=== PATIENT | female | born 1990 | race Caucasian/White ===

== ENCOUNTER 2018-12-04 17:33 | Inpatient (IN) | payer OTHER ==
[~2018-12-04] VITALS: Ht 165.1 cm; Wt 90.0 kg
[~2018-12-04 17:33] MED LIST: NORG1TAB6 PO
[2018-12-15] MEDS ORDERED: METHYLERGONOVINE 0.2 MG/ML IM ONE (08:00)
[2018-12-15] MEDS ORDERED: CARBOPROST TROMETHAMINE 250 MCG/ML, 1ML IM ONE (08:00)
[2018-12-15] MEDS: D5%-LACTATED RINGERS 1,000 ML IV SCH ×2 (09:36→17:36)
[2018-12-15] MEDS ORDERED: OXYTOCIN 30U/ 0.9% NaCL 500ML 500 ML IV ONE (09:36)
[2018-12-15] MEDS: LACTATED RINGERS 1,000 ML IV SCH ×3 (09:36→17:57)
[2018-12-15] MEDS ORDERED: OXYTOCIN 30U/ 0.9% NaCL 500ML 500 ML IV PRN (09:36)
[2018-12-15 10:00] LABS: BASOPHILS # (AUTO) 0.05 x10^3/uL (0-0.1); BASOPHILS % (AUTO) 1 % (0-1); EOSINOPHILS # (AUTO) 0.04 x10^3/uL (0-0.4); EOSINOPHILS % (AUTO) 1 % (1-7); LYMPHOCYTES # (AUTO) 1.76 x10^3/uL (1-3.4); LYMPHOCYTES % (AUTO) 23 % (22-44); MD NO; MEAN CORPUSCULAR HEMOGLOBIN 29.1 pg (27.0-34.8); MEAN CORPUSCULAR HGB CONC 32.8 g/dL (32.4-35.8); MEAN CORPUSCULAR VOLUME 88.6 fL (80-100); MONOCYTES # (AUTO) 0.46 x10^3/uL (0.2-0.8); MONOCYTES % (AUTO) 6 % (2-9); NEUTROPHILS # (AUTO) 5.45 x10^3/uL (1.8-6.8); NEUTROPHILS % (AUTO) 70 % (42-75); PLATELET COUNT 199 x10^3/uL (130-400); RED BLOOD COUNT 4.34 x10^6/uL (3.82-5.3); RED CELL DISTRIBUTION WIDTH 14.4 % (9.6-15.2)
[2018-12-15] MEDS ORDERED: ONDANSETRON 2MG/ML, 2ML IVPush PRN (10:00)
[2018-12-15] MEDS ORDERED: CALCIUM CARBONATE 500 MG TAB.CHEW PO PRN (10:00)
[2018-12-15] MEDS ORDERED: FENTANYL PF 100 MCG/2ML IV PRN (10:00)
[2018-12-15] MEDS ORDERED: TERBUTALINE 1 MG/ML, 1ML IVPush PRN (10:00)
[2018-12-15] MEDS ORDERED: FENTANYL PF 100 MCG/2ML IVPush PRN (10:00)
[2018-12-15] MEDS ORDERED: NEWBORN KIT ONE (10:07)
[2018-12-15] MEDS ORDERED: MISOPROSTOL 200 MCG TABLET ONE (10:08)
[2018-12-15] MEDS ORDERED: LIDOCAINE 1%, 20ML ONE (10:08)
[2018-12-15] MEDS ORDERED: OXYTOCIN 30U/ 0.9% NaCL 500ML 500 ML ONE (10:08)
[2018-12-15] MEDS ORDERED: MISOPROSTOL 25 MCG TABLET ONE ×2 (10:08→14:08)
[2018-12-15] MEDS: MISOPROSTOL 25 MCG TABLET VG PRN ×2 (10:13→14:26)
[2018-12-15] MEDS ORDERED: FENTANYL/BUPIV./NS/PF 250 ML EPIDCONT SCH (17:57)
[2018-12-15] MEDS ORDERED: EPHEDRINE 50 MG/ML, 1ML IVPush PRN (18:00)
[2018-12-15] MEDS ORDERED: FENTANYL PF 500 MCG, BUPIVACAINE/PF 0.5%, 30ML 62.5 ML in SODIUM CHLORIDE 0.9% 177.5 ML EPIDCONT SCH (18:30)
[2018-12-15] MEDS ORDERED: LACTATED RINGERS 1,000 ML IVBOLUS PRN (19:00)
[2018-12-15 19:19] VITALS: BP 133/83
[2018-12-16] MEDS: LACTATED RINGERS 1,000 ML IV SCH ×7 (00:07→23:57)
[2018-12-16] MEDS: D5%-LACTATED RINGERS 1,000 ML IV SCH ×2 (01:36→09:36)
[2018-12-16] MEDS ORDERED: FENTANYL PF 100 MCG/2ML ONE ×3 (06:06→12:36)
[2018-12-16] MEDS ORDERED: BUPIVACAINE 0.25% ONE (07:19)
[2018-12-16] MEDS ORDERED: LIDOCAINE/PF 1.5% EPI 1:200K, 10 ML ONE (07:20)
[2018-12-16] MEDS ORDERED: LIDOCAINE/PF 1.5%-EPI 1:200K, 30ML ONE (07:22)
[2018-12-16] MEDS ORDERED: FENTANYL/BUPIV./NS/PF 250 ML EPIDCONT SCH (07:58)
[2018-12-16] MEDS ORDERED: ONDANSETRON 2MG/ML, 2ML IVPush PRN (08:00)
[2018-12-16] MEDS ORDERED: EPHEDRINE 50 MG/ML, 1ML IVPush PRN (08:00)
[2018-12-16] MEDS ORDERED: METOCLOPRAMIDE 5 MG/ML, 2ML ONE (12:26)
[2018-12-16] MEDS ORDERED: SODIUM CITRATE/CITRIC ACID 15 ML UDC ONE (12:26)
[2018-12-16] MEDS ORDERED: METOCLOPRAMIDE 5 MG/ML, 2ML IV ONE (12:30)
[2018-12-16] MEDS ORDERED: SODIUM CITRATE/CITRIC ACID 15 ML UDC PO ONE (12:30)
[2018-12-16] MEDS ORDERED: morphine SULFATE/PF 0.5 MG/ML, 10ML ONE (12:45)
[2018-12-16] MEDS ORDERED: BUPIVACAINE/PF 0.25% ONE (13:33)
[2018-12-16] MEDS ORDERED: WATER-INJECTION,STERILE 10 ML IV ONE (13:33)
[2018-12-16] MEDS ORDERED: PHENYLEPHRINE 10 MG/ML ONE (13:33)
[2018-12-16] MEDS ORDERED: OXYTOCIN 10 UNITS/ML, 1ML ONE (13:33)
[2018-12-16] MEDS ORDERED: EPHEDRINE 50 MG/ML, 1ML ONE (13:33)
[2018-12-16] MEDS ORDERED: CEFAZOLIN 1,000 MG ONE (13:33)
[2018-12-16] MEDS ORDERED: LIDOCAINE-MPF 2% ,5ML ONE (13:33)
[2018-12-16] MEDS ORDERED: LACTATED RINGERS 1,000 ML IV SCH (13:57)
[2018-12-16] MEDS: OXYTOCIN 30U/ 0.9% NaCL 500ML 500 ML IV SCH ×2 (13:57→23:57)
[2018-12-16] MEDS ORDERED: BISACODYL 10 MG SUPP PR PRN (14:00)
[2018-12-16] MEDS ORDERED: ACETAMINOPHEN 325 MG TABLET PO PRN (14:00)
[2018-12-16] MEDS ORDERED: METOCLOPRAMIDE 5 MG/ML, 2ML IV PRN (14:00)
[2018-12-16] MEDS ORDERED: METHYLERGONOVINE 0.2 MG/ML IM PRN (14:00)
[2018-12-16] MEDS ORDERED: ONDANSETRON 2MG/ML, 2ML IV PRN (14:00)
[2018-12-16] MEDS ORDERED: CARBOPROST TROMETHAMINE 250 MCG/ML, 1ML IM PRN (14:00)
[2018-12-16] MEDS ORDERED: GLYCERIN ADULT SUPP PR PRN (14:00)
[2018-12-16] MEDS ORDERED: HYDROmorphone 2 MG/ML, 1ML ONE (14:16)
[2018-12-16] MEDS ORDERED: MISOPROSTOL 200 MCG TABLET PR ONE (14:30)
[2018-12-16] MEDS ORDERED: HYDROmorphone/PF 10 MG/ML, 1ML IVPush PRN (14:30)
[2018-12-16] MEDS ORDERED: DIPHENHYDRAMINE 50 MG/ML, 1ML IVPush PRN (14:30)
[2018-12-16] MEDS ORDERED: KETOROLAC 30 MG/1 ML IV SCH (14:30)
[2018-12-16] MEDS ORDERED: NALOXONE 0.4 MG/ML, 1ML IVPush PRN (14:30)
[2018-12-16] MEDS ORDERED: HYDROmorphone 2 MG/ML, 1ML IVPush PRN (14:35)
[2018-12-16] MEDS ORDERED: OXYcodone/APAP 5/325MG TABLET ONE (14:44)
[2018-12-16] MEDS: OXYcodone/APAP 5/325MG TABLET PO PRN ×2 (14:48→19:43)
[2018-12-16 16:07] VITALS: BP 114/74
[2018-12-16] MEDS: DOCUSATE 100 MG CAPSULE PO PRN (19:43)
[2018-12-16 20:00] VITALS: BP 122/83
[2018-12-16] MEDS: KETOROLAC 30 MG/1 ML IV SCH (20:57)
[2018-12-16 21:35] LABS: MEAN CORPUSCULAR HEMOGLOBIN 28.8 pg (27.0-34.8); MEAN CORPUSCULAR HGB CONC 32.4 g/dL (32.4-35.8); MEAN CORPUSCULAR VOLUME 88.7 fL (80-100); MEAN PLATELET VOLUME 8.6 fL (7.4-10.4); PLATELET COUNT 181 x10^3/uL (130-400); RED BLOOD COUNT 3.19 x10^6/uL (3.82-5.3); RED CELL DISTRIBUTION WIDTH 14.4 % (9.6-15.2)
[2018-12-16 21:52] LABS: BASOPHILS # (AUTO) 0.02 x10^3/uL (0-0.1); BASOPHILS % (AUTO) 0 % (0-1); EOSINOPHILS # (AUTO) 0.01 x10^3/uL (0-0.4); EOSINOPHILS % (AUTO) 0 % (1-7); LYMPHOCYTES # (AUTO) 1.68 x10^3/uL (1-3.4); LYMPHOCYTES % (AUTO) 13 % (22-44); MD SCAN; MONOCYTES # (AUTO) 0.59 x10^3/uL (0.2-0.8); MONOCYTES % (AUTO) 4 % (2-9); NEUTROPHILS % (AUTO) 83 % (42-75)
[2018-12-17 00:30] VITALS: BP 103/65
[2018-12-17] MEDS: OXYcodone/APAP 5/325MG TABLET PO PRN ×4 (00:40→15:41)
[2018-12-17] MEDS: KETOROLAC 30 MG/1 ML IV SCH ×2 (02:41→09:03)
[2018-12-17 05:30] VITALS: BP 90/58
[2018-12-17 08:10] VITALS: BP 91/60
[2018-12-17] MEDS ORDERED: MEASLES,MUMPS&RUBELLA VACC/PF 0.5 ML SQ-VACC ONE ×2 (08:52→09:00)
[2018-12-17] MEDS: DOCUSATE 100 MG CAPSULE PO PRN ×2 (09:03→21:14)
[2018-12-17] MEDS: PRENATAL VIT/IRON/FA 1 EACH TABLET PO SCH (09:03)
[2018-12-17] MEDS: FERROUS SULFATE 325 MG TABLET PO SCH ×2 (09:03→21:15)
[2018-12-17] MEDS: OXYTOCIN 30U/ 0.9% NaCL 500ML 500 ML IV SCH ×2 (09:57→19:57)
[2018-12-17] MEDS: LACTATED RINGERS 1,000 ML IV SCH ×2 (09:57→19:57)
[2018-12-17 12:10] VITALS: BP 107/68
[2018-12-17 15:05] VITALS: BP 105/70
[2018-12-17] MEDS ORDERED: IBUPROFEN 800 MG TABLET ONE (17:07)
[2018-12-17] MEDS: IBUPROFEN 800 MG TABLET PO PRN (18:00)
[2018-12-17 19:30] VITALS: BP 114/69
[2018-12-18] MEDS: OXYcodone/APAP 5/325MG TABLET PO PRN ×2 (01:00→08:15)
[2018-12-18] MEDS: IBUPROFEN 800 MG TABLET PO PRN ×3 (05:59→22:49)
[2018-12-18 07:25] VITALS: BP 106/68
[2018-12-18] MEDS: FERROUS SULFATE 325 MG TABLET PO SCH ×2 (08:15→22:49)
[2018-12-18] MEDS: PRENATAL VIT/IRON/FA 1 EACH TABLET PO SCH (08:15)
[2018-12-18] MEDS: DOCUSATE 100 MG CAPSULE PO PRN ×2 (08:15→22:49)
[2018-12-18] MEDS ORDERED: IBUPROFEN 800 MG TABLET PO PRN (14:00)
[2018-12-18 20:00] VITALS: BP 113/74
[2018-12-19] MEDS: OXYcodone/APAP 5/325MG TABLET PO PRN (01:58)
[2018-12-19] MEDS: IBUPROFEN 800 MG TABLET PO PRN (06:50)
[2018-12-19 07:05] VITALS: BP 96/62
[2018-12-19] MEDS: DOCUSATE 100 MG CAPSULE PO PRN (08:01)
[2018-12-19] MEDS: FERROUS SULFATE 325 MG TABLET PO SCH (08:01)
[2018-12-19] MEDS: PRENATAL VIT/IRON/FA 1 EACH TABLET PO SCH (08:01)
[2018-12-19] MEDS ORDERED: OXYC-302 PO (12:47)
[2018-12-19] MEDS ORDERED: FERR-4 PO (12:47)
[2018-12-19] MEDS ORDERED: IBUP-1222 PO (12:47)
[2019-01-17] MEDS ORDERED: IBUPROFEN 800 MG TABLET PO PRN (17:00)
== END 2018-12-19 14:06 | disposition home or self-care (01) | DRG 787 ==
LOC: EDIP 12-15 09:19 → LDIP 12-15 09:27 → 2NW 12-16 15:52
PROVIDERS: ADMIT Student in an Organized Health Care Education/Training Program; ATTEND Student in an Organized Health Care Education/Training Program
PROC: 10D00Z1 Extraction of Products of Conception, Low, Open Approach (ICD-10-PCS; principal; 2018-12-16)
DX: O48.0 Post-term pregnancy (principal); D62 Acute posthemorrhagic anemia; O72.1 Other immediate postpartum hemorrhage; O99.03 Anemia complicating the puerperium; O32.8XX0 Maternal care for other malpresentation of fetus, not applicable or unspecified; G89.18 Other acute postprocedural pain; Z37.0 Single live birth; Z3A.41 41 weeks gestation of pregnancy; Z80.41 Family history of malignant neoplasm of ovary; Z82.3 Family history of stroke; Z82.49 Family history of ischemic heart disease and other diseases of the circulatory system; Z83.3 Family history of diabetes mellitus
CPT/HCPCS: 36415; J3490; S0020; 85025; 86850; 86900; G0378; J0690; J1170; J1885; J2274; J3010; J2210; J2370; J2590; J2765; J7050; J7120

== ENCOUNTER → 2020-11-04 | Outpatient (CLI) | payer OTHER ==
[~2020-11-04] MED LIST changes: +FERR-4 PO; +IBUP-1222 PO; +OXYC1TAB14 PO
== END | disposition home or self-care (01) ==
LOC: STAR 15:30
PROVIDERS: ATTEND Student in an Organized Health Care Education/Training Program
DX: Z20.822 Contact with and (suspected) exposure to COVID-19 (principal)
CPT/HCPCS: U0003; U0005

== ENCOUNTER 2020-11-07 07:16 | Inpatient (IN) | payer OTHER ==
[~2020-11-07] VITALS: Ht 167.6 cm; Wt 97.0 kg
[~2020-11-07 07:16] MED LIST changes: +OXYC1TAB12 PO; -OXYC1TAB14 PO
[2020-11-09] MEDS ORDERED: ONDANSETRON 2MG/ML, 2ML IVPush PRN (07:30)
[2020-11-09] MEDS ORDERED: FENTANYL PF 100 MCG/2ML IVPush PRN (07:30)
[2020-11-09] MEDS ORDERED: OXYTOCIN 30U/ 0.9% NaCL 500ML 500 ML IV PRN (07:30)
[2020-11-09] MEDS ORDERED: TERBUTALINE 1 MG/ML, 1ML SQ PRN (07:30)
[2020-11-09] MEDS ORDERED: TERBUTALINE 1 MG/ML, 1ML IVPush PRN (07:30)
[2020-11-09] MEDS ORDERED: OXYTOCIN 30U/ 0.9% NaCL 500ML 500 ML ONE (07:35)
[2020-11-09] MEDS: LACTATED RINGERS 1,000 ML IV SCH ×2 (07:38→15:30)
[2020-11-09 08:07] LABS: BASOPHILS % (AUTO) 1 % (0-1); EOSINOPHILS % (AUTO) 0 % (1-7); LYMPHOCYTES % (AUTO) 24 % (22-44); MEAN CORPUSCULAR HGB CONC 34.4 g/dL (32.4-35.8); MONOCYTES % (AUTO) 6 % (2-9); NEUTROPHILS % (AUTO) 69 % (42-75); PLATELET COUNT 222 x10^3/uL (130-400); RED BLOOD COUNT 4.41 x10^6/uL (3.82-5.3); RED CELL DISTRIBUTION WIDTH 14.6 % (9.6-15.2)
[2020-11-09 08:14] LABS: ALBUMIN 2.6 g/dL (3.4-5.0); ANION GAP 9 mmol/L (5-15); CALCIUM 8.8 mg/dL (8.5-10.1); CHLORIDE 109 mmol/L (98-107)
[2020-11-09 08:18] VITALS: BP 113/68
[2020-11-09 08:18] LABS: ALANINE AMINOTRANSFERASE 14 U/L (12-78); ALKALINE PHOSPHATASE 134 U/L (45-117); BILIRUBIN,TOTAL 0.4 mg/dL (0.2-1.0); TOTAL PROTEIN 6.9 g/dL (6.4-8.2)
[2020-11-09] MEDS ORDERED: OXYTOCIN 30U/ 0.9% NaCL 500ML 500 ML IV ONE (08:30)
[2020-11-09] MEDS ORDERED: D5%-LACTATED RINGERS 1,000 ML IV SCH (08:30)
[2020-11-09 08:38] LABS: MICROSCOPIC INDICATED
[2020-11-09] MEDS ORDERED: NEWBORN KIT ONE (09:50)
[2020-11-09] MEDS ORDERED: PREN1TAB60 PO (10:27)
[2020-11-09] MEDS ORDERED: LACTATED RINGERS 1,000 ML IVBOLUS PRN (12:00)
[2020-11-09] MEDS ORDERED: LACTATED RINGERS 1,000 ML IV SCH (12:00)
[2020-11-09] MEDS ORDERED: NALOXONE 0.4 MG/ML, 1ML IVPush PRN (12:00)
[2020-11-09] MEDS ORDERED: FENTANYL/BUPIV./NS/PF 250 ML EPIDCONT SCH (12:00)
[2020-11-09] MEDS ORDERED: EPHEDRINE 50 MG/ML, 1ML IVPush PRN (12:00)
[2020-11-09] MEDS ORDERED: BUPIVACAINE 0.25% ONE (17:05)
[2020-11-10] MEDS ORDERED: METOCLOPRAMIDE 5 MG/ML, 2ML ONE (07:36)
[2020-11-10] MEDS ORDERED: SODIUM CITRATE/CITRIC ACID 15 ML UDC ONE (07:36)
[2020-11-10] MEDS ORDERED: METOCLOPRAMIDE 5 MG/ML, 2ML IV ONE (08:30)
[2020-11-10] MEDS ORDERED: SODIUM CITRATE/CITRIC ACID 30 ML UDC PO ONE (08:30)
[2020-11-10] MEDS ORDERED: AZITHROMYCIN 500 MG in SODIUM CHLORIDE 0.9% 250 ML IV ONE (08:30)
[2020-11-10] MEDS ORDERED: LACTATED RINGERS 1,000 ML IVBOLUS ONE (08:30)
[2020-11-10] MEDS ORDERED: FENTANYL PF 100 MCG/2ML ONE (09:36)
[2020-11-10] MEDS ORDERED: CEFAZOLIN 1,000 MG ONE (09:36)
[2020-11-10] MEDS ORDERED: ONDANSETRON 2MG/ML, 2ML ONE (09:36)
[2020-11-10] MEDS ORDERED: HYDROmorphone 2 MG/ML, 1ML ONE (09:36)
[2020-11-10] MEDS ORDERED: OXYTOCIN 10 UNITS/ML, 1ML ONE (09:36)
[2020-11-10] MEDS ORDERED: LIDOCAINE/MPF 2%-EPI 1:200K, 20 ML ONE (09:37)
[2020-11-10] MEDS ORDERED: EPHEDRINE 50 MG/ML, 1ML ONE (10:10)
[2020-11-10] MEDS ORDERED: KETOROLAC 30 MG/1 ML ONE (10:25)
[2020-11-10] MEDS ORDERED: OXYTOCIN 30U/ 0.9% NaCL 500ML 500 ML ONE (10:47)
[2020-11-10] MEDS ORDERED: ACETAMINOPHEN 325 MG TABLET PO PRN (11:00)
[2020-11-10] MEDS: LACTATED RINGERS 1,000 ML IV SCH ×4 (11:00→21:00)
[2020-11-10] MEDS ORDERED: MISOPROSTOL 200 MCG TABLET ONE (11:00)
[2020-11-10] MEDS ORDERED: BISACODYL 10 MG SUPP PR PRN (11:00)
[2020-11-10] MEDS ORDERED: IBUPROFEN 800 MG TABLET PO PRN (11:00)
[2020-11-10] MEDS: OXYTOCIN 30U/ 0.9% NaCL 500ML 500 ML IV SCH ×2 (11:00→21:00)
[2020-11-10] MEDS ORDERED: MISOPROSTOL 200 MCG TABLET PO PRN (11:00)
[2020-11-10] MEDS ORDERED: GLYCERIN ADULT SUPP PR PRN (11:00)
[2020-11-10] MEDS ORDERED: METHYLERGONOVINE 0.2 MG/ML IM PRN (11:00)
[2020-11-10] MEDS ORDERED: OXYcodone/APAP 5/325MG TABLET PO PRN (11:00)
[2020-11-10] MEDS ORDERED: CARBOPROST TROMETHAMINE 250 MCG/ML, 1ML IM PRN (11:00)
[2020-11-10] MEDS ORDERED: ONDANSETRON 2MG/ML, 2ML IV PRN (11:00)
[2020-11-10] MEDS: KETOROLAC 30 MG/1 ML IV SCH ×3 (11:00→22:14)
[2020-11-10] MEDS ORDERED: METOCLOPRAMIDE 5 MG/ML, 2ML IV PRN (11:00)
[2020-11-10] MEDS ORDERED: NEWBORN KIT ONE (11:01)
[2020-11-10] MEDS ORDERED: DIPHENOXYLATE/ATROPINE TABLET PO PRN (12:00)
[2020-11-10 12:50] LABS: MEAN CORPUSCULAR HEMOGLOBIN 29.9 pg (27.0-34.8); MEAN CORPUSCULAR HGB CONC 33.8 g/dL (32.4-35.8); MEAN PLATELET VOLUME 9.3 fL (7.4-10.4); PLATELET COUNT 171 x10^3/uL (130-400); RED BLOOD COUNT 3.52 x10^6/uL (3.82-5.3); RED CELL DISTRIBUTION WIDTH 14.9 % (9.6-15.2)
[2020-11-10 13:10] LABS: BAND#(MANUAL) 4.04 x10^3/uL; BANDS%(MANUAL) 20 % (0-7); LYMPH#(MANUAL) 0.81 x10^3/uL (1-3.4); LYMPHS% (MANUAL) 4 % (22-44); MONOS#(MANUAL) 1.01 x10^3/uL (0.3-2.7); MONOS% (MANUAL) 5 % (2-9); SEG#(MANUAL) 14.34 x10^3/uL (1.8-6.8); SEGS% (MANUAL) 71 % (42-75)
[2020-11-10 13:11] LABS: <PLATELET ESTIMATE> ADEQUATE; <PLT MORPHOLOGY> NORMAL PLT MORPH; <RBC MORPHOLOGY> NORMAL
[2020-11-10] MEDS: OXYcodone 5 MG/5 ML ORAL.SOL UDC PO PRN ×2 (13:17→17:49)
[2020-11-10 14:30] VITALS: BP 116/67
[2020-11-10 16:30] VITALS: BP 115/76
[2020-11-10 18:06] LABS: MEAN CORPUSCULAR HEMOGLOBIN 29.8 pg (27.0-34.8); MEAN CORPUSCULAR HGB CONC 33.5 g/dL (32.4-35.8); MEAN PLATELET VOLUME 8.7 fL (7.4-10.4); PLATELET COUNT 158 x10^3/uL (130-400); RED BLOOD COUNT 3.06 x10^6/uL (3.82-5.3); RED CELL DISTRIBUTION WIDTH 14.9 % (9.6-15.2)
[2020-11-10 18:25] LABS: BAND#(MANUAL) 2.61 x10^3/uL; BANDS%(MANUAL) 13 % (0-7); MONOS% (MANUAL) 2 % (2-9)
[2020-11-10 18:26] LABS: <PLATELET ESTIMATE> ADEQUATE; <RBC MORPHOLOGY> NORMAL; LARGE PLATELETS 1+; LYMPH#(MANUAL) 1.41 x10^3/uL (1-3.4); LYMPHS% (MANUAL) 7 % (22-44); SEG#(MANUAL) 15.68 x10^3/uL (1.8-6.8); SEGS% (MANUAL) 78 % (42-75)
[2020-11-10 21:00] VITALS: BP 117/77
[2020-11-10] MEDS: SIMETHICONE 80 MG CHEW TAB PO PRN (22:14)
[2020-11-11] VITALS (9 sets, daily range): BP systolic 102–135; BP diastolic 70–83
[2020-11-11] MEDS: LACTATED RINGERS 1,000 ML IV SCH ×2 (03:00→07:00)
[2020-11-11] MEDS: KETOROLAC 30 MG/1 ML IV SCH ×4 (05:24→19:18)
[2020-11-11] MEDS: OXYTOCIN 30U/ 0.9% NaCL 500ML 500 ML IV SCH (07:00)
[2020-11-11] MEDS ORDERED: DIPHENHYDRAMINE 50 MG/ML, 1ML IVPush ONE (08:30)
[2020-11-11] MEDS: PRENATAL VIT/IRON/FA 1 EACH TABLET PO SCH (08:52)
[2020-11-11] MEDS ORDERED: ACETAMINOPHEN 500 MG TABLET PO ONE (09:00)
[2020-11-11 14:00] LABS: BASOPHILS % (AUTO) 0 % (0-1); EOSINOPHILS % (AUTO) 1 % (1-7); LYMPHOCYTES % (AUTO) 15 % (22-44); MEAN CORPUSCULAR HGB CONC 34.1 g/dL (32.4-35.8); MEAN PLATELET VOLUME 8.8 fL (7.4-10.4); MONOCYTES % (AUTO) 4 % (2-9); NEUTROPHILS % (AUTO) 80 % (42-75); PLATELET COUNT 168 x10^3/uL (130-400); RED BLOOD COUNT 3.24 x10^6/uL (3.82-5.3)
[2020-11-11] MEDS: DOCUSATE 100 MG CAPSULE PO PRN ×2 (14:57→21:14)
[2020-11-11] MEDS: OXYcodone IR 5MG TABLET PO PRN ×2 (14:58→21:14)
[2020-11-12] MEDS: OXYcodone IR 5MG TABLET PO PRN ×5 (03:15→20:55)
[2020-11-12] MEDS: IBUPROFEN 600 MG TABLET PO PRN ×3 (03:15→16:33)
[2020-11-12 05:21] LABS: BASOPHILS % (AUTO) 0 % (0-1); EOSINOPHILS % (AUTO) 1 % (1-7); LYMPHOCYTES % (AUTO) 23 % (22-44); MEAN CORPUSCULAR HEMOGLOBIN 30.6 pg (27.0-34.8); MEAN CORPUSCULAR HGB CONC 34.8 g/dL (32.4-35.8); MONOCYTES % (AUTO) 4 % (2-9); NEUTROPHILS % (AUTO) 71 % (42-75); PLATELET COUNT 181 x10^3/uL (130-400); RED BLOOD COUNT 3.03 x10^6/uL (3.82-5.3)
[2020-11-12] MEDS: DOCUSATE 100 MG CAPSULE PO PRN ×2 (07:59→20:55)
[2020-11-12] MEDS: PRENATAL VIT/IRON/FA 1 EACH TABLET PO SCH (07:59)
[2020-11-12 08:23] VITALS: BP 112/77
[2020-11-12] MEDS: VALACYCLOVIR 500MG TABLET PO SCH ×2 (11:00→20:55)
[2020-11-12 19:20] VITALS: BP 115/77
[2020-11-13] MEDS: OXYcodone IR 5MG TABLET PO PRN ×3 (01:07→10:23)
[2020-11-13] MEDS: IBUPROFEN 600 MG TABLET PO PRN ×3 (01:07→13:46)
[2020-11-13] MEDS: SIMETHICONE 80 MG CHEW TAB PO PRN (03:41)
[2020-11-13 07:45] VITALS: BP 120/83
[2020-11-13] MEDS: PRENATAL VIT/IRON/FA 1 EACH TABLET PO SCH (07:45)
[2020-11-13] MEDS: VALACYCLOVIR 500MG TABLET PO SCH (07:46)
[2020-11-13] MEDS: DOCUSATE 100 MG CAPSULE PO PRN (07:46)
[2020-11-13] MEDS ORDERED: OXYC5TAB98 PO (09:42)
[2020-11-13] MEDS ORDERED: IBUP-1222 PO (09:42)
[2020-11-13] MEDS ORDERED: DOCU-131 PO (09:42)
== END 2020-11-13 14:59 | disposition home or self-care (01) | DRG 788 ==
LOC: LDIP 11-09 06:00 → 2NW 11-10 14:50
PROVIDERS: ADMIT Student in an Organized Health Care Education/Training Program; ATTEND Student in an Organized Health Care Education/Training Program
PROC: 10907ZC Drainage of Amniotic Fluid, Therapeutic from Products of Conception, Via Natural or Artificial Opening (ICD-10-PCS; 2020-11-09)
PROC: 10H07YZ Insertion of Other Device into Products of Conception, Via Natural or Artificial Opening (ICD-10-PCS; 2020-11-09)
PROC: 10D00Z1 Extraction of Products of Conception, Low, Open Approach (ICD-10-PCS; principal; 2020-11-10)
PROC: 30233N1 Transfusion of Nonautologous Red Blood Cells into Peripheral Vein, Percutaneous Approach (ICD-10-PCS; 2020-11-11)
DX: O13.4 Gestational [pregnancy-induced] hypertension without significant proteinuria, complicating childbirth (principal); O34.211 Maternal care for low transverse scar from previous cesarean delivery; O72.1 Other immediate postpartum hemorrhage; O66.41 Failed attempted vaginal birth after previous cesarean delivery; O32.4XX0 Maternal care for high head at term, not applicable or unspecified; O77.0 Labor and delivery complicated by meconium in amniotic fluid; Z37.0 Single live birth; Z3A.40 40 weeks gestation of pregnancy; Z80.41 Family history of malignant neoplasm of ovary; Z82.3 Family history of stroke; Z82.49 Family history of ischemic heart disease and other diseases of the circulatory system; Z83.2 Family history of diseases of the blood and blood-forming organs and certain disorders involving the immune mechanism; Z83.3 Family history of diabetes mellitus; O48.0 Post-term pregnancy
CPT/HCPCS: 36415; J7121; 80053; 81001; 82570; 84156; 85014; 85018; 85025; 86592; 86850; 86900; 86923; G0378; J0456; J0690; J1170; J1885; J2405; J3010; J1200; J2590; J2765; J7050; J7120; P9016

== ENCOUNTER 2020-11-18 15:59 | Emergency (ER) | payer OTHER ==
[~2020-11-18] VITALS: Ht 165.1 cm; Wt 85.0 kg
[~2020-11-18 15:59] MED LIST changes: +DOCU-131 PO; -OXYC1TAB12 PO; +OXYC1TAB14 PO; +OXYC5TAB98 PO; +PREN1TAB60 PO
--- NOTE | 2020-11-18 16:16 | NUR ---
MARIE MALIK SENT PATIENT TO ER BECAUSE C SEC SCAR ONE WEEK AGO IS STILL PAINFUL, AND PAIN RIGHT SIDE. IN BED, WITH BABY HERE SUPPORTIVE
[2020-11-18] MEDS ORDERED: MORPHINE SULFATE 4 MG/ML, 1ML IVPush PRN (17:00)
--- NOTE | 2020-11-18 17:00 | NUR ---
REPORT FROM EARLENE RN WITH ASSESSMENT PATIENT APPEARS WELL. REPORTS RLQ/RIGHT HIP PAIN RATED AT 2/10-DEFERRING PAIN/NAUSEA MEDICINE
[2020-11-18 17:06] LABS: BASOPHILS % (AUTO) 1 % (0-1); EOSINOPHILS % (AUTO) 2 % (1-7); LYMPHOCYTES % (AUTO) 45 % (22-44); MEAN CORPUSCULAR HGB CONC 34.1 g/dL (32.4-35.8); MEAN PLATELET VOLUME 6.8 fL (7.4-10.4); MONOCYTES % (AUTO) 7 % (2-9); NEUTROPHILS % (AUTO) 46 % (42-75); PLATELET COUNT 500 x10^3/uL (130-400); RED BLOOD COUNT 4.16 x10^6/uL (3.82-5.3); RED CELL DISTRIBUTION WIDTH 14.3 % (9.6-15.2)
[2020-11-18 17:21] LABS: ALBUMIN 3.1 g/dL (3.4-5.0); ANION GAP 8 mmol/L (5-15); CALCIUM 8.6 mg/dL (8.5-10.1); CHLORIDE 107 mmol/L (98-107)
[2020-11-18 17:25] LABS: ALANINE AMINOTRANSFERASE 28 U/L (12-78); ALKALINE PHOSPHATASE 108 U/L (45-117); BILIRUBIN,TOTAL 0.3 mg/dL (0.2-1.0); CREATININE 0.88 mg/dL (0.55-1.02); TOTAL PROTEIN 7.9 g/dL (6.4-8.2)
[2020-11-18] MEDS ORDERED: ONDANSETRON 2MG/ML, 2ML IVPush ONE (17:30)
[2020-11-18] MEDS ORDERED: SODIUM CHLORIDE FLUSH 10ML SYR IVF ONE (18:00)
--- NOTE | 2020-11-18 18:30 | NUR ---
TO CT SCAN CLEAN CATCH UA OBTAINED
[2020-11-18] MEDS ORDERED: OMNIPAQUE 350 MG/ML, 100ML BOTTLE ONE (18:39)
[2020-11-18 19:08] LABS: MICROSCOPIC AUTO
[2020-11-18 19:19] VITALS: BP 116/67
--- NOTE | 2020-11-18 19:21 | NUR ---
POC REVIEWED WITH PATIENT (CONSULTING [employer]). NO CHANGES IN SXS
[2020-11-18] MEDS ORDERED: OXYcodone IR 5MG TABLET PO ONE (19:30)
[2020-11-18] MEDS ORDERED: OXYcodone IR 5MG TABLET ONE (19:33)
--- NOTE | 2020-11-18 19:41 | NUR ---
MEDICATED PER EMAR. WILL D/C PRIOR TO 30 MIN PATIENT NOT NAIVE TO NARCOTICS AND WILL BE IN COMPANY OF
== END 2020-11-18 19:47 | disposition home or self-care (01) ==
LOC: ED 16:40
DX: G89.18 Other acute postprocedural pain (principal); R10.31 Right lower quadrant pain; R10.32 Left lower quadrant pain
CPT/HCPCS: 36415; 74177; 80053; 81001; 85025; 87086; 99285; Q9967